=== PATIENT | female | born 2000 | race Caucasian/White ===

== ENCOUNTER 2022-09-20 00:28 | Inpatient (IN) | payer OTHER ==
[2022-09-20] VITALS (15 sets, daily range): BP systolic 129–166; BP diastolic 68–92
[~2022-09-20] VITALS: Ht 160 cm; Wt 73.4 kg
[2022-09-20] MEDS ORDERED: LIDOCAINE 1% MDV 20ML VIAL INFIL PRN (01:35)
[2022-09-20] MEDS ORDERED: LR 1,000 ML IV SCH (01:35)
[2022-09-20] MEDS ORDERED: METHYLERGONOVINE MALEATE 0.2MG/ML 1ML VIAL IM PRN (01:35)
[2022-09-20] MEDS ORDERED: OXYTOCIN DRIP 30 UNITS in IV 1 EA IV PRN ×4 (01:35)
[2022-09-20] MEDS ORDERED: TRANEXAMIC ACID INJection 1,000 MG in NS 100 ML IV PRN (01:35)
[2022-09-20] MEDS ORDERED: PRENTAB9 PO (01:49)
[2022-09-20] MEDS ORDERED: HOME MED LIST COMPLETE! XX SCH (01:50)
[2022-09-20 02:19] LABS: HEMATOCRIT 34.8 % (36.0-47.0); HEMOGLOBIN 11.1 g/dl (12.0-15.5); MEAN CORPUSCULAR HEMOGLOBIN 27.6 pg (27.0-33.0); MEAN CORPUSCULAR HGB CONC 31.9 g/dl (32.0-36.5); MEAN CORPUSCULAR VOLUME 86.6 fl (80.0-96.0); PLATELET COUNT, AUTOMATED 208 10^3/uL (150-450); RED BLOOD COUNT 4.02 10^6/uL (4.00-5.40); WHITE BLOOD COUNT 9.2 10^3/uL (4.0-10.0)
[2022-09-20] MEDS ORDERED: diphenhydrAMINE 50MG/ML VIAL IV ONE (07:05)
[2022-09-20] MEDS ORDERED: OXYTOCIN DRIP 30 UNITS in IV 1 EA IV SCH (10:35)
[2022-09-20] MEDS ORDERED: DIBUCAINE 1% OINTMENT 30GM TOP PRN (10:35)
[2022-09-20] MEDS ORDERED: ACETAMINOPHEN 500 MG TAB PO PRN (10:35)
[2022-09-20] MEDS ORDERED: RHOGAM 300MCG (1500IU) INJ IM SCH (10:35)
[2022-09-20] MEDS ORDERED: ACETAMINOPHEN TAB 650MG DOSE (2X325MG) PO PRN (10:35)
[2022-09-20] MEDS ORDERED: METHYLERGONOVINE MALEATE 0.2 MG TAB PO PRN (10:35)
[2022-09-20] MEDS: PRENATAL VITAMINS CHEWABLE TABLET PO SCH (12:08)
[2022-09-20] MEDS: IBUPROFEN 800 MG TAB PO PRN (12:21)
[2022-09-20] MEDS: IBUPROFEN 600MG TAB PO PRN (20:58)
[2022-09-21 06:00] VITALS: BP 130/68
[2022-09-21] MEDS: PRENATAL VITAMINS CHEWABLE TABLET PO SCH (07:56)
[2022-09-21] MEDS: IBUPROFEN 800 MG TAB PO PRN (09:27)
[2022-09-21 18:00] VITALS: BP 129/70
[2022-09-21] MEDS: DOCUSATE SODIUM 100MG CAPSULE PO PRN (18:25)
[2022-09-21] MEDS: IBUPROFEN 600MG TAB PO PRN (20:19)
[2022-09-22 06:00] VITALS: BP 137/75
[2022-09-22] MEDS: DOCUSATE SODIUM 100MG CAPSULE PO PRN (08:02)
[2022-09-22] MEDS: PRENATAL VITAMINS CHEWABLE TABLET PO SCH (08:03)
[2022-09-22] MEDS: IBUPROFEN 600MG TAB PO PRN (08:12)
== END 2022-09-22 11:40 | disposition home or self-care (01) | DRG 807 ==
LOC: M LDO 00:28 → M LDI 01:46 → M OBS 12:02
PROVIDERS: ADMIT Obstetrics & Gynecology; ATTEND Obstetrics & Gynecology
PROC: 10E0XZZ Delivery of Products of Conception, External Approach (ICD-10-PCS; principal; 2022-09-20)
PROC: 0KQM0ZZ Repair Perineum Muscle, Open Approach (ICD-10-PCS; 2022-09-20)
DX: O48.0 Post-term pregnancy (principal); Z37.0 Single live birth; Z3A.40 40 weeks gestation of pregnancy; O70.1 Second degree perineal laceration during delivery; O36.0990 Maternal care for other rhesus isoimmunization, unspecified trimester, not applicable or unspecified

== ENCOUNTER → 2023-04-08 | Outpatient (CLI) | payer OTHER ==
[~2023-04-08] MED LIST: ISOVUE-300 61% 100ML VIAL As Ordered ONE; LIDOCAINE 1% MDV 20ML VIAL As Ordered ONE; PRENTAB9 PO; PROHANCE 279.3MG/ML 5ML VIAL As Ordered ONE
== END ==
LOC: M RAD 06:56
PROVIDERS: ATTEND Orthopaedic Surgery
DX: M75.41 Impingement syndrome of right shoulder (principal); M25.511 Pain in right shoulder
CPT/HCPCS: 20610; 73223; 77002; A9576; Q9967

== ENCOUNTER → 2023-05-11 | Outpatient (CLI) | payer OTHER ==
[~2023-05-11] MED LIST changes: -ISOVUE-300 61% 100ML VIAL As Ordered ONE; +ISOVUE-370 76% 100ML VIAL As Ordered ONE; -LIDOCAINE 1% MDV 20ML VIAL As Ordered ONE; -PROHANCE 279.3MG/ML 5ML VIAL As Ordered ONE
== END ==
LOC: M RAD 07:19
PROVIDERS: ATTEND Physician Assistant
DX: M25.511 Pain in right shoulder (principal); R20.2 Paresthesia of skin; M25.512 Pain in left shoulder
CPT/HCPCS: 71275; 94010; G0463; Q9967

== ENCOUNTER → 2023-06-16 | Outpatient (CLI) | payer OTHER | LOC: M RAD 07:45 | PROVIDERS: ATTEND Physician Assistant | DX: M25.511 Pain in right shoulder (principal) | CPT/HCPCS: 71275; Q9967 ==